=== PATIENT | female | born 1955 | race Caucasian/White ===

== ENCOUNTER → 2022-05-03 | Outpatient (CLI) | payer BC, MEDICARE, OTHER ==
[2022-05-03 08:39] LABS: Source, Urine Clean Catch
[2022-05-03 13:06] LABS: Appearance, Urine Hazy (Clear); Blood, Urine 1+ (Neg); Glucose Qualitative, Urine Neg (Neg); Ketones, Urine Neg (Neg); Leukocyte Esterase, Urine 3+ (Neg); Nitrite, Urine Pos (Neg); Protein, Urine 1+ (Neg); Urobilinogen, Urine 2+ (Normal)
[2022-05-03 13:17] LABS: Bilirubin, Urine 2+ (Neg); Color, Urine Amber (P-Yellow)
[2022-05-03 13:18] LABS: Bacteria Many /hpf; Squamous Epithelial Cells Rare /hpf (Few)
== END ==
LOC: LAB 08:37 → LAB SHORT 08:37
PROVIDERS: Physician Assistant Medical
DX: R30.0 Dysuria (principal); R35.0 Frequency of micturition
CPT/HCPCS: 81001; 87077; 87086; 87186

== ENCOUNTER → 2023-05-09 | Outpatient (CLI) | payer MEDICARE | LOC: LAB SHORT 16:40 → LAB 16:40 | DX: R30.0 Dysuria (principal) | CPT/HCPCS: 87086 ==